=== PATIENT | male | born 1950 | race Caucasian/White ===

== ENCOUNTER 2018-06-02 18:53 | Emergency (ER) | payer OTHER ==
[2018-06-02 18:59] VITALS: BMI 25.8
--- NOTE | 2018-06-02 19:01 | PDOC ---
Rapid Medical Evaluation Chief Complaint: Chest Pain Time Seen by Provider: 06/02/18 18:55 Medical Evaluation: Allergies Allergy/AdvReac Type Severity Reaction Status Date / Time No Known Drug Allergies Allergy Verified 07/02/15 12:52 06/02/18 18:56I have performed a brief in-person evaluation of this patient. The patient presents with a chief complaint of: CP x 2days , coughing no phlegm. states felt feverish Pertinent physical exam findings: coarse breath sounds/ diminshed on left.. patient quiet and slow to respond I have ordered the following: CXR , EKG The patient will proceed to the ED for further evaluation. 06/02/18 18:59 06/02/18 19:02 Discharge Disposition - Diagnosis Cough - Referrals - Patient Instructions - Post Discharge Activity
--- NOTE | 2018-06-02 19:40 | PDOC ---
History of Present Illness - General Chief Complaint: Chest Pain Stated Complaint: SHORTNESS OF BREATH Time Seen by Provider: 06/02/18 18:55 History Source: Patient, Old Records Exam Limitations: Other - History of Present Illness Initial Comments: 67 y/o male presenting to [facility] ER via private auto complaining of chest pain. Pt is a poor historian. His answers were inconsistent during the course of this interview, and he provided answers contradictory to HPI provided to RME. He states he has been having chest pain for two hours but it resolved without intervention. It may have been happening episodically over the past two days and it may be exertional. States it radiates to his left arm but not into his back, neck, or abdomen. Denies syncope, headache, sore throat, coughing, URI symptoms, GI symptoms. Endorses using methadone and Xanax two days ago. States these were dispensed by a clinic and prescribed by a Dr. Kraig Duenas. Pt denies past medical history, however multiple medical problems were documented on his H&P from [facility] dated 07/02/2015, which are listed below. States he receives most of his care at [facility]. No prior ER visits in [facility]. PCP: Dr. Kraig Duenas (per pt) Medical Hx: - Seizure Disorder, - Anemia, unspecified - HTN - Hep C, status unknown Surgical Hx: (LEFT KNEE SX IN 2012 DUE TO FALL TRUAMA) Past History - Past Medical History Allergies/Adverse Reactions: Allergies Allergy/AdvReac Type Severity Reaction Status Date / Time No Known Drug Allergies Allergy Verified 06/03/18 04:35 Home Medications: Ambulatory Orders Lisinopril [Prinivil] 20 mg PO DAILY 11/24/12 Esomeprazole Mag Trihydrate [Nexium] 40 mg PO DAILY 07/02/15 Anemia: Yes (NOT CURRENTLY ON MED) Asthma: No Cancer: No Cardiac Disorders: No CVA: No COPD: No CHF: No Dementia: No Diabetes: No GI Disorders: Yes (acid reflux-NEXIUM) Disorders: No HTN: Yes (ON LISINOPRIL) Hypercholesterolemia: No Kidney Stones: No Liver Disease: No Seizures: Yes (drug related once in 2009) Thyroid Disease: No - Surgical History Abdominal Surgery: No Appendectomy: No Cardiac Surgery: No Cholecystectomy: No Lung Surgery: No Neurologic Surgery: No Orthopedic Surgery: Yes (LEFT KNEE SX IN 2013 DUE TO FALL TRUAMA) - Reproductive History Testicular Surgery: No - Suicide/Smoking/Psychosocial Hx Smoking History: Unknown if ever smoked Have you smoked in the past 12 months: No Number of Cigarettes Smoked Daily: 4 If you are a former smoker, when did you quit?: 2 YRS Information on smoking cessation initiated: No 'Breaking Loose' booklet given: 11/24/12 Hx Alcohol Use: No Drug/Substance Use Hx: No Substance Use Type: None, Tranquilizers Hx Substance Use Treatment: Yes ([facility]) Cardiac Specific PMH - Complaint Specific PMHX Pacemaker: No Review of Systems - Review of Systems Able to Perform ROS?: Yes Comments:: In addition to that documented in the HPI above, the additional ROS was obtained : Constitutional: Denies fevers or chills Eyes: Denies vision changes ENMT: Denies sore throat CV: per HPI Resp: Denies SOB GI: Denies vomiting or diarrhea : Denies painful urination MSK: Denies recent trauma Skin: Denies new rashes Neuro: Denies new numbness or tingling or weakness Endocrine: Denies polyuria Heme: Denies bleeding disorders *Physical Exam - Vital Signs Last Vital Signs Temp Pulse Resp BP Pulse Ox 97.3 F L 52 L 18 114/69 97 06/03/18 03:23 06/03/18 03:23 06/03/18 03:23 06/03/18 03:23 06/03/18 03:23 - Physical Exam Comments: Constitutional: Nontoxic male in no acute distress or obvious discomfort. Found standing up unassisted next to hospital bed. Alert and oriented x4. Answers were brief and occasionally conflicting. Speech was non-labored, non-pressured. HEENT: Normocephalic. No obvious external signs of trauma. Hearing grossly normal. No nasal discharge. Neck is supple, trachea is midline. Cardiovascular: Regular rate and regular rhythm. No murmur, rubs, clicks, or gallops. Peripheral pulses: Radial pulses full. Respiratory: Breathing unlabored. Equal chest rise and fall. Trace wheeze in posterior lower right lobe. No stridor or rhonchi. Gastrointestinal: abdomen is soft, non-tender, non-distended. No pulsatile masses. No overlying skin lesions or obvious signs of trauma. Neuro: Alert and oriented. Moving all four extremities spontaneously. Pupils 3mm and fixed bilaterally. Skin: Warm, dry, and intact. No bruising, rashes, or other lesions. Psych: Affect: withdrawn. Would not hold gaze. ED Treatment Course - LABORATORY CBC & Chemistry Diagram: 06/02/18 19:15 06/03/18 03:19 - ADDITIONAL ORDERS Additional order review: Laboratory Results 06/03/18 06/02/18 06/02/18 03:19 20:52 20:52 Sodium 140 140 Potassium 4.3 3.9 Chloride 105 102 Carbon Dioxide 29 30 Anion Gap 6 L 8 BUN 23 H 24 H Creatinine 0.8 0.7 Creat Clearance w eGFR > 60 > 60 Random Glucose 78 86 Calcium 8.6 8.7 Total Bilirubin 0.2 0.2 AST 18 16 ALT 13 13 Alkaline Phosphatase 57 54 Troponin I < 0.02 < 0.02 Total Protein 7.0 6.8 Albumin 3.3 L 3.4 06/02/18 06/02/18 19:57 19:15 Sodium Cancelled Cancelled Potassium Cancelled Cancelled Chloride Cancelled Cancelled Carbon Dioxide Cancelled Cancelled Anion Gap Cancelled Cancelled BUN Cancelled Cancelled Creatinine Cancelled Cancelled Creat Clearance w eGFR Cancelled Cancelled Random Glucose Cancelled Cancelled Calcium Cancelled Cancelled Total Bilirubin Cancelled Cancelled AST Cancelled Cancelled ALT Cancelled Cancelled Alkaline Phosphatase Cancelled Cancelled Troponin I Cancelled Total Protein Cancelled Cancelled Albumin Cancelled Cancelled 06/02/18 19:15 RBC 3.90 L MCV 92.0 MCHC 33.6 RDW 14.9 MPV 9.1 Neutrophils % 57.2 Lymphocytes % 27.8 Monocytes % 9.9 Eosinophils % 4.8 H Basophils % 0.3 Medical Decision Making - Medical Decision Making *Reviewed vital signs, nursing notes, and prior visit documentation (if available). 67 y/o male complaining of vague atypical chest pain. Pt continues to give varying stories to multiple providers and members of staff. Afebrile. Vitals unremarkable for hypotension or tachycardia. Low suspicion for ACS, arrhythmia, pericarditis, pericardial effusion, pneumothorax, pneumonia, esophageal rupture , GERD. Will obtain CBC, CMP, Troponin, EKG, CXR. Will trended 2nd Troponin and EKG at 2 hours. EKG: Sinus bradycardia rhythm with a ventricular rate of 57 bpm. Normal axis. Normal intervals. No ST segment elevation or depression. No hyperacute T waves. No pathologic Q waves. CMP and Troponin hemolyzed per lab. Reordered. CMP unremarkable for electrolyte derangement. LFTs not elevated. 23:50 RN reports pt told her he took sleeping pills. Pt denies taking home medications when questioned. States his chest pain has resolved. Heart and lungs remain unremarkable on repeat physical exam. Pt stated he did not want to be discharged because it was too dark and he was too tired. Requested to have a second troponin drawn. Explained that he would be discharged at approx. 3 am if this second troponin was not elevated. Pt expressed understanding and agreement with plan. 06/03/18 05:31 Pt found sleeping comfortably. Verbally arousable. Stated his pain was fine. Heart and lung auscultation exam remains unchanged. Informed his second troponin was not elevated and he was able to go home. Pt stable for discharge. *DC/Admit/Observation/Transfer Diagnosis at time of Disposition: Cough, Atypical chest pain - Discharge Dispostion Disposition: HOME Condition at time of disposition: Stable Decision to Admit order: No - Referrals - Patient Instructions Printed Discharge Instructions: DI for Atypical Chest Pain Additional Instructions: Your lab and imaging results were were normal. Follow up with your primary care physician within the next 3-4 days. You will need to call to make an appointment. Take your home medications as instructed. No change was made in your medications today. Go to the nearest emergency department if your condition worsens or you feel like you need additional emergency evaluation. Print Language: SPANISH - Post Discharge Activity
--- NOTE | 2018-06-02 19:48 | PDOC ---
Attending Attestation - Resident Resident Name: Nitish Figueroa - ED Attending Attestation I have performed the following: I have examined & evaluated the patient, The case was reviewed & discussed with the resident, I agree w/resident's findings & plan, Exceptions are as noted - HPI HPI: 06/02/18 19:47 67y M dm,htn, hcv, hx of substance abuse presents with L sided chest pain x 2 weeks - patient states that the pain is substernal, sharp in nature last for minutes to hours. At an episode 2 weeks ago and then resolved. He had another episode starting around 12pm lasted for 3 hours and currently he is asymptomatic and denies any chest pain. There was no associated shortness of breath, nausea, vomiting, diaphoresis, abdominal pain, there was no radiation to the back there was no associated numbness, tingling, weakness, cough, hemoptysis, leg swelling. - Physicial Exam PE: 06/02/18 20:17 GENERAL: The patient is awake, alert, and fully oriented, Nontoxic - in no acute distress. HEAD: Normocephalic, atraumatic. EYES: extraocular movements intact, sclera anicteric, conjunctiva clear. ENT: Normal voice, Moist mucous membranes. NECK: Normal range of motion, supple LUNGS: Breath sounds equal, clear to auscultation bilaterally. No wheezes, no rhonchi, no rales. HEART: Regular rate and rhythm, normal S1 and S2 without murmur, rub or gallop. ABDOMEN: Soft, nontender, No guarding, no rebound. No CVA tenderness EXTREMITIES: Normal range of motion, no edema. Scoliosis NEUROLOGICAL: No facial assymetry, Normal speech, PSYCH: Normal mood, normal affect. SKIN: Warm, Dry, normal turgor, - Medical Decision Making 06/02/18 20:17 will screen for RI with trop x 1 (5 hrs sp last cp) EKG unremkarble cxr to r/o ptx 06/03/18 01:51 trop neg x 1 will obtain second trop, if neg will dc home with pmd fu Heart Score/ECG Review - ECG Impressions Comment:: 06/02/18 20:17 Twelve-lead EKG was performed and reviewed by me. There is normal sinus rhythm with a normal rate. rate of 57 normal axis Sinus bradycardia
[2018-06-02 20:18] LABS: BASO % 0.3 % (0-2.0); EOS % 4.8 % (0-4.5); HEMATOCRIT 35.8 % (35.4-49); LYMPH % 27.8 % (8-40); MCH 30.9 pg (25.7-33.7); MCHC 33.6 g/dl (32.0-35.9); MEAN PLT VOLUME 9.1 fl (7.5-11.1); MONO % 9.9 % (3.8-10.2); NEUT % 57.2 % (42.8-82.8); PLATELET COUNT 131 K/MM3 (134-434); RDW 14.9 % (11.9-15.9); WHITE BLOOD COUNT 4.7 K/mm3 (4.0-10.0)
[2018-06-02 21:54] LABS: ALBUMIN 3.4 g/dl (3.4-5.0); ALK PHOS 54 U/L (45-117); ANION GAP 8 MMOL/L (8-16); BILIRUBIN,TOTAL 0.2 mg/dL (0.2-1); BLOOD UREA NITROGEN 24 mg/dL (7-18); CALCIUM 8.7 mg/dL (8.5-10.1); CHLORIDE 102 mmol/L (98-107); CO2 30 mmol/L (21-32); CREATININE 0.7 mg/dL (0.55-1.3); GLUCOSE,RANDOM 86 mg/dL (74-106); POTASSIUM 3.9 mmol/L (3.5-5.1); SGOT/AST 16 U/L (15-37); SGPT/ALT 13 U/L (13-61); SODIUM 140 mmol/L (136-145); TOT PROT 6.8 g/dl (6.4-8.2)
[2018-06-03 05:05] LABS: ALBUMIN 3.3 g/dl (3.4-5.0); ALK PHOS 57 U/L (45-117); ANION GAP 6 MMOL/L (8-16); BILIRUBIN,TOTAL 0.2 mg/dL (0.2-1); BLOOD UREA NITROGEN 23 mg/dL (7-18); CALCIUM 8.6 mg/dL (8.5-10.1); CHLORIDE 105 mmol/L (98-107); CO2 29 mmol/L (21-32); CREATININE 0.8 mg/dL (0.55-1.3); GLUCOSE,RANDOM 78 mg/dL (74-106); POTASSIUM 4.3 mmol/L (3.5-5.1); SGOT/AST 18 U/L (15-37); SGPT/ALT 13 U/L (13-61); SODIUM 140 mmol/L (136-145)
[2018-06-03 06:14] VITALS: BP 123/68; PULSE 89; TEMP 98.5
--- NOTE | 2018-06-03 07:41 | EKG ---
Test Reason : Blood Pressure : / mmHG Vent. Rate : 057 BPM Atrial Rate : 057 BPM P-R Int : 170 ms QRS Dur : 100 ms QT Int : 468 ms P-R-T Axes : 024 013 022 degrees QTc Int : 455 ms SINUS BRADYCARDIA CANNOT RULE OUT ANTERIOR INFARCT , AGE UNDETERMINED ABNORMAL ECG NO PREVIOUS ECGS AVAILABLE Confirmed by MARV REILLY MD ([id number]) on 06/03/2018 7:40:51 AM Referred By: Confirmed By:MARV REILLY MD
== END 2018-06-03 06:00 | disposition home or self-care (01) ==
LOC: JER 18:53
DX: R07.89 Other chest pain (principal); I10 Essential (primary) hypertension; D64.9 Anemia, unspecified; Z86.69 Personal history of other diseases of the nervous system and sense organs; Z86.2 Personal history of diseases of the blood and blood-forming organs and certain disorders involving the immune mechanism
CPT/HCPCS: 36415; 71045-TC-FY; 80053; 84484; 85025; 93005; 93010; 99285-25